=== PATIENT | female | born 1945 | race Caucasian/White ===

== ENCOUNTER → 2017-01-02 | Outpatient (CLI) | payer MEDICARE ==
[~2017-01-02] MED LIST: CEFU500T PO; CYCL10TA45 PO; DOCU100C37 PO; Multivitamins/Minerals Therap PO; OXYC-471 PO; OXYCODONE; PHEN-483 PO; PRED5DRO17 OD; SENN-140 PO; SIMV40TA2; SIMV40TA4 PO; TRIA1CAP4 PO; TRIAMTERENE/HCTZ
--- NOTE | 2017-01-03 18:12 | Diagnostic Imaging Report ---
Bilateral screening mammogram. The current study was also evaluated with a Computer Aided Detection (CAD) system. INDICATION: Screening. No current complaints stated on the questionnaire. COMPARISON: 03/26/15. FINDINGS: The breasts are composed of scattered fibroglandular densities. There are vascular and benign-appearing calcifications. There is an intramammary lymph node in the axillary tail of the right breast without significant change. Allowing for technique and positional differences, no suspicious change is seen. IMPRESSION: No significant change. ACR BI-RADS Category 2: Benign findings. Result letter will be mailed to the patient. Note: At least 10% of breast cancer is not imaged by mammography. Dictated by: Dictated on workstation # [id number]
== END ==
LOC: RAD 13:23
PROVIDERS: ATTEND Internal Medicine
DX: Z12.31 Encounter for screening mammogram for malignant neoplasm of breast (principal)
CPT/HCPCS: 77067

== ENCOUNTER → 2021-09-02 | Outpatient (CLI) | payer MEDICARE ==
[~2021-09-02] MED LIST changes: -OXYC-471 PO; +OXYC1TAB11 PO; -SENN-140 PO; +SENN-234 PO; +SIMV40TA25 PO; -SIMV40TA4 PO
--- NOTE | 2021-09-02 14:03 | Diagnostic Imaging Report ---
PA and lateral chest at 0200 hours. INDICATION: Chest pain. There are no prior studies available for comparison. FINDINGS: The heart size is at the upper limits of normal. The right hemidiaphragm is elevated to the level of the right hilum. I suspect this finding is long-standing in nature. The lungs seem clear. There is no sign of failure, pneumonia or pleural effusion. The lateral view does show a small well-circumscribed 1 cm nodular density along the posterior aspect of the lung bases. This finding cannot be identified with certainty on the PA view. This finding has a generally benign appearance and this could represent a granuloma. A neoplastic mass would be less likely but should still be considered. Unless there previous exams available to demonstrate that this finding is stable and not neoplastic in nature, then CT of the chest would be recommended. The mediastinum is not widened. The osseous structures are intact. IMPRESSION: 1. There is no evidence for an acute cardiopulmonary abnormality. 2. The small nodular density seen only on the lateral view is of uncertain etiology. Considerations and recommendations as above. Dictated by: Dictated on workstation # [id number]
== END ==
LOC: RAD 13:25
PROVIDERS: ATTEND Internal Medicine
DX: J98.4 Other disorders of lung (principal); I10 Essential (primary) hypertension
CPT/HCPCS: 71046

== ENCOUNTER → 2021-09-08 | Outpatient (CLI) | payer MEDICARE ==
[~2021-09-08] MED LIST changes: +REGADENOSON 0.4 MG/5 ML SYR (LEXISCAN) IV ONE
[2021-09-08] MEDS: CATHETER FLUSH 10 ML SYR IV PRN ×2 (07:18→08:17)
[2021-09-08 08:16] VITALS: BP 167/97
--- NOTE | 2021-09-08 15:33 | NUCLEAR STRESS TEST ---
REGADENOSON NUCLEAR STRESS Date of procedure: 09/08/2021. Primary care provider: Rodrigo Nieves DO Admitting physician: Rodrigo Nieves DO. INDICATION: Chest pain. NUCLEAR PROCEDURE: The patient was administered 10.8 mCi of intravenous technetium 99m Tetrofosmin at rest for the rest images. The patient was subsequently administered 29.6 mCi of intravenous technetium 99m Tetrofosmin at peak stress for the stress images. Following an appropriate wait after each injection, imaging was obtained. The images were subsequently processed and reformatted in the usual views. Gated imaging was obtained. The image quality was adequate with a mild degree of gastrointestinal attenuation artifact noted. CT attenuation correction was used as a adjunct to standard imaging. Both the corrected and uncorrected images were reviewed for interpretation. NUCLEAR RESULTS: There was normal myocardial perfusion in all segments without evidence of infarction or ischemia. There was normal left ventricular chamber size with an end-diastolic volume of 42 mL and an end-systolic volume of 13 mL. There was no evidence of transient ischemic dilatation. The TID ratio was 1.08. There was normal wall motion in all segments with a calculated ejection fraction of 70%. IMPRESSION: 1. This is the nuclear interpretation of a regadenoson nuclear stress test. Please see separate report from Rodrigo Nieves DO for the stress portion of the test. 2. There was normal myocardial perfusion in all segments without evidence of infarction or ischemia. 3. There was normal wall motion in all segments with a calculated ejection fraction is 70%. Certain portions of this document may have been dictated utilizing voice recognition technology. Inherent to this technology, typographical and grammatical errors may exist. As much as I am diligent to identify and correct these mistakes, some errors may remain in the document. ASHLEIGH KUMAR JR, MD Sep 08, 2021 15:33
== END ==
LOC: CARD 07:00
PROVIDERS: ATTEND Internal Medicine
DX: R07.9 Chest pain, unspecified (principal)
CPT/HCPCS: 78452; 93017; A9502